=== PATIENT | female | born 2000 | race Two or more races ===

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

== ENCOUNTER 2021-05-05 11:04 | Emergency (ER) | payer MEDICAID ==
[~2021-05-05] VITALS: Ht 154.9 cm; Wt 51.3 kg
[2021-05-05 11:30] VITALS: BP 97/69
[2021-05-05 13:48] LABS: Urine Bacteria FEW /hpf (None Seen); Urine Blood TRACE /uL (Negative); Urine Mucus FEW (None Seen); Urine Specific Gravity 1.024 (1.001-1.035); Urine WBC 47 /hpf (0 - 5)
== END 2021-05-05 15:16 | disposition left against medical advice (07) ==
LOC: ER 11:04
DX: O26.891 Other specified pregnancy related conditions, first trimester (principal); M54.59 Other low back pain; O99.321 Drug use complicating pregnancy, first trimester; F12.10 Cannabis abuse, uncomplicated; Z53.29 Procedure and treatment not carried out because of patient's decision for other reasons; Z3A.01 Less than 8 weeks gestation of pregnancy
CPT/HCPCS: 36415; 81001; 81025; 84702